=== PATIENT | female | born 1965 | race Caucasian/White ===

== ENCOUNTER 2016-12-09 10:43 | Emergency (ER) | payer MEDICARE, OTHER ==
[~2016-12-09] VITALS: Ht 160 cm; Wt 80.7 kg
[2016-12-09 10:45] VITALS: BP 141/70
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
== END 2016-12-09 11:21 | disposition home or self-care (01) ==
LOC: ER 10:43
DX: F41.9 Anxiety disorder, unspecified (principal); R06.4 Hyperventilation
CPT/HCPCS: 99284

== ENCOUNTER → 2020-01-30 | Outpatient (CLI) | payer OTHER, MEDICAID | END | disposition home or self-care (01) | LOC: LAB 08:34 | PROVIDERS: ATTEND Internal Medicine Gastroenterology | DX: R11.2 Nausea with vomiting, unspecified (principal); Z20.828 Contact with and (suspected) exposure to other viral communicable diseases | CPT/HCPCS: U0003-CS ==

== ENCOUNTER → 2020-02-01 | Day surgery (SDC) | payer OTHER, MEDICAID ==
[~2020-02-01] MED LIST: IV RINGERS,LACTATED 1000ML 1,000 ML IV SCH; LIDOCAINE 2% PF 5 ML VIAL. ONE; PROPOFOL 10 MG/ML (20ML) VIAL. IV ONE
[2020-02-01 13:42] VITALS: BP 141/80
--- NOTE | 2020-02-02 15:08 | PATHOLOGY ---
[facility] Accession Number: [id number] . 01 Material submitted: . esophagus - DISTAL ESOPHAGUS BX. Modifiers: distal . 01 Clinical history: . N/V . 02 Diagnosis: Esophageal biopsies, distal esophagus: - Esophagitis with eosinophils. See comment. (JPM:sonia; 02/02/2020) S 02/02/2020 1049 Local . 02 Comment: Sections of the distal esophageal biopsy reveal segments of obviously hyperplastic squamous esophageal mucosa. There are intraepithelial eosinophils. The differential diagnosis of esophagitis with eosinophils includes reflux esophagitis, "pill esophagitis", and eosinophilic esophagitis. Most areas show only a few intraepithelial eosinophils. However, focally, there are between 15 and 20 intraepithelial eosinophils within a high power field. This latter finding is suggestive of eosinophilic esophagitis. There is no evidence of Marcos's change, dysplasia, or malignancy. (JPM:sonia; 02/02/2020) . 02 Electronically signed: . Rashaad Kendrick MD, Pathologist NPI- [id number] . 01 Gross description: . The specimen is received in formalin, labeled "Kisha Orozcocher, distal esophagus biopsy". Received are four segments of pale bah soft tissue ranging in size from 0.4 to 0.7 cm in maximum dimensions. The specimen is submitted entirely in cassette A1. (CAA; 02/01/2020) QAC/QAC 02/01/2020 1821 Local . 02 Pathologist provided ICD-10: K20.0 . 02 CPT . 084599 Specimen Comment: A courtesy copy of this report has been sent to [phone], [phone] Specimen Comment: [id number] Specimen Comment: Report sent to / DR PAYNE Performed at: [address] [place] [address] [address] [facility] [address], [place], [place] [id number] MD Miguel Yee MD Phone: [phone] Performed at: [address] [id number] MD Rashaad Kendrick MD Phone: [phone]
== END | disposition home or self-care (01) ==
LOC: ENDOS 11:23
PROVIDERS: ATTEND Internal Medicine Gastroenterology
DX: K21.0 Gastro-esophageal reflux disease with esophagitis (principal); I10 Essential (primary) hypertension; E78.00 Pure hypercholesterolemia, unspecified; F41.9 Anxiety disorder, unspecified; K22.10 Ulcer of esophagus without bleeding; Z98.890 Other specified postprocedural states; Z79.899 Other long term (current) drug therapy
CPT/HCPCS: 43239; 88305; J2704